=== PATIENT | female | born 2000 | race Caucasian/White ===

== ENCOUNTER 2019-11-25 10:48 | Inpatient (IN) | payer MEDICAID ==
[~2019-11-25] VITALS: Ht 160 cm; Wt 58.5 kg
[2019-11-25] MEDS ORDERED: ALBUTEROL SULF8.5 GM INH (10:52)
[2019-11-25 11:25] VITALS: BP 108/76; Ht 160 cm; Wt 58.5 kg
[2019-11-25 11:29] LABS: HEMOGLOBIN 13.1 g/dL (12-16); MCH 32.6 pg (26.0-34.0); MCHC 33.6 g/dL (31.0-37.0); MEAN PLATELET VOLUME 11.9 fL (7.4-10.4); RBC 4.02 10x6/uL (4.00-5.40); RDW 13.1 % (11.5-14.5); WBC 9.3 10x3/uL (4.8-10.8)
--- NOTE | 2019-11-25 19:08 | NUR ---
RECEIVED SHIFT REPORT FROM ALFRED WALSH RN, INFORMED PT THAT I WILL BE IN SHORTLY TO DO ASSESSMENT, PT VERBALIZES UNDERSTANDING, DENIES NEEDS AT THIS TIME
[2019-11-25 19:40] VITALS: BP 114/70
--- NOTE | 2019-11-25 19:40 | NUR ---
ASSESSMENT PER FLOW SHEET, VS OBTAINED, FF, SLIGHTLY DEVIATED TO THE RIGHT, PT REPORTS NEEDING TO VOID, IV IN LEFT HAND CONVERTED TO SALINE LOCK, PT INST ON WALKING TO BR, PT VERBALIZES UNDERSTANDING, PT UP TO SIDE OF BED, DENIES ANY LIGHTHEADEDNESS OR DIZZYNESS, PT AMB TO BR, GAIT STEADY, VOIDED 1000 MLS OF LIGHTLY BLOOD TINGED URINE, ASSISTED PT WITH MARIA ALEJANDRA CARE, MARIA ALEJANDRA PAD, PANTIES AND CLEAN GOWN, PT BACK TO BED, FF, ML NOW, LIGHT BLEEDING NOTED WITH NO CLOTS, PT REPORTS FLATUS, DENIES PAIN, INFORMED PT THAT I WILL BE MOVING HER TO [facility], PT VERBALIZES UNDERSTANDING, DENIES NEEDS AT THIS TIME, BED IN LOW POSITION, SIDE RAILS X 2, CALL LIGHT IN REACH
--- NOTE | 2019-11-25 20:43 | NUR ---
PT VISITING WITH FAMILY AND FRIENDS, PT'S MOM HOLDING , INFORMED PT THAT I WILL BE MOVING HER TO [facility] SHORTLY, PT VERBALIZES UNDERSTANDING, DENIES NEEDS AT THIS TIME
--- NOTE | 2019-11-25 21:15 | NUR ---
PT TRANSFERRED VIA AMB, GAIT STEADY, WITH INFANT AND FOB AT SIDE, PT'S PARENTS TAKES ALL BELONGINGS AND OTHER CHILD TO ROOM, PT TO BED, PT ORIENTED TO ROOM, BED IN LOW POSITION, SIDE RAILS X 2, CALL LIGHT IN REACH, INFORMED PT THAT I WILL BE BACK SHORTLY WITH BEDDING FOR FOB WHEN FAMILY LEAVES, PT VERBALIZES UNDERSTANDING, DENIES NEEDS AT THIS TIME
--- NOTE | 2019-11-25 21:52 | NUR ---
BEDDING PROVIDED TO FOB, PT REQUESTS SANDWICH TRAY, INFORMED PT THAT I WILL CHECK TO SEE IF I HAVE ONE, PT VERBALIZES UNDERSTANDING, DENIES FURTHER NEEDS
--- NOTE | 2019-11-25 22:07 | NUR ---
PT AND FOB FILLING OUT NSY PAPERWORK, IN OPEN CRIB CART AT BEDSIDE, CUP OF ICE AND SANDWICH TRAY PROVIDED, PT DENIES FURTHER NEEDS
--- NOTE | 2019-11-25 23:15 | NUR ---
PT HOLDING INFANT, MARIA ALEJANDRA PANTIES PROVIDED, PT REQUESTING TYLENOL, INFORMED PT THAT IT WAS DUE AT MIDNIGHT AND THAT I WILL ADM IT THEN, PT VERBALIZES UNDERSTANDING, DENIES FURTHER NEEDS, FOB LAYING IN BED WITH PT
--- NOTE | 2019-11-26 00:06 | NUR ---
ADM TYLENOL PER MD ORDERS, SEE EMAR, PT REQUESTED AND PROVIDED GRANT MORAN, DENIES FURTHER NEEDS, INFANT IN OPEN CRIB CART AT BEDSIDE, FOB IN BED WITH PT
[2019-11-26 02:45] VITALS: BP 114/59
--- NOTE | 2019-11-26 02:45 | NUR ---
INFANT TO ROOM VIA OPEN CRIB CART PER THIS RN, BANDS CHECKED, PT INST THAT ITS TIME TO FEED , PT REQUESTS BREATHING TREAMENT, REPORTS HAVING ASTHMA AND USES AN INHALER AT HOME, PT REPORTS THAT SHE DOES NOT HAVE HER INHALER WITH HER, INFORMED PT THAT I WILL NOTIFY DR MAXWELL, VS OBTAINED, O2SAT 98% ON RA, PT DENIES FURTHER NEEDS OR PAIN
--- NOTE | 2019-11-26 03:00 | NUR ---
DR MAXWELL NOTIFIED, REPORT OF VS, O2 SAT, HAS ASTHMA, USES INHALER, DOES NOT HAVE IT WITH HER, REQUESTS BREATHING TREATMENT, ORDERS RECEIVED FOR ALBUTEROL 2.5MG IN 3CC OF NS NEBULIZED, MAY ALSO HAVE AN MDI AT BEDSIDE, ORDERS READ BACK AND VERIFIED
--- NOTE | 2019-11-26 03:03 | NUR ---
SPOKE TO RT NEGIN REGARDING ORDER, HE REPORTS THAT THE HOSPITAL DOES NOT CARRY MDI AT THIS TIME
--- NOTE | 2019-11-26 03:18 | NUR ---
NEGIN, RT TO ROOM FOR TREATMENT
[2019-11-26 06:09] LABS: RAPID PLASMA REAGIN Non Reactive (Non Reactive)
--- NOTE | 2019-11-26 06:09 | NUR ---
PT RESTING WITH EYES CLOSED, AROUSES TO SOFT VERBAL STIMULATION, ADM TYLENOL PER MD ORDERS, SEE EMAR, PT DENIES FURTHER NEEDS, INFANT IN OPEN CRIB CART AT BEDSIDE, FOB ASLEEP IN BED WITH PT
[2019-11-26 06:36] LABS: BASOPHILS 0.2 % (0-2); HEMATOCRIT 35.4 % (36.0-48.0); HEMOGLOBIN 11.9 g/dL (12-16); IMMATURE GRANULOCYTES 0.3 % (0-5); LYMPHOCYTES 18.5 % (15-50); MCH 32.3 pg (26.0-34.0); MCHC 33.6 g/dL (31.0-37.0); MCV 96.2 fL (80.0-100.0); MEAN PLATELET VOLUME 12.1 fL (7.4-10.4); MONOCYTES 8.8 % (2-11); NEUTROPHILS 70.2 % (40-80); RBC 3.68 10x6/uL (4.00-5.40); WBC 10.5 10x3/uL (4.8-10.8)
[2019-11-26 06:46] LABS: PLATELET COUNT 156 10x3/uL (130-400)
--- NOTE | 2019-11-26 07:23 | NUR ---
RESTING QUIETLY WITH EYES CLOSED, RESP REGULAR AND UNLABORED NO S/S OF DISTRESS NOTED. RESTING QUIETLY IN OPEN CRIB. PT DOES NOT OPEN EYES WHEN DOOR OPENS. REPORT REC'D FROM Melissa BROCK RN. WILL CONTINUE TO MONITOR. BED IN LOW POSITION WITH SRUP X2. CALL LIGHT AND PHONE WITHIN REACH.
--- NOTE | 2019-11-26 08:26 | NUR ---
PT LAYING ON RIGHT SIDE RESTING WITH EYES CLOSED. RESTING QUIETLY IN OPEN CRIB AT BEDSIDE. RESP REGULAR AND UNLABORED, NO S/S OF DISTRESS NOTED. PT DOES NOT OPEN EYES WHEN RN ENTERS ROOM. PT NOT DISTURBED TO ALLOW FOR REST. WILL COMPLETE ASSESSMENT WHEN PT AWAKES. BED IN LOW POSITION WITH SRUP X2. CALL LIGHT AND PHONE WTIHIN REACH. WILL CONTINUE TO MONITOR. SIGNIFICANT OTHER RESTING IN CHAIR AT BEDSIDE.
[2019-11-26 09:53] VITALS: BP 123/63
--- NOTE | 2019-11-26 09:53 | NUR ---
SHIFT ASSESSMENT COMPLETED PER FLOWSHEET. VSS. FUNDUS FIRM, MIDLINE AND U1 WITH SCANT RUBRA LOCHIA, NO CLOTS NOTED. C/O ABD CRAMPING AND BACK ACHE 04/12, TORADOL GIVEN PER ORDER AND PT REQUEST, EDUCATED ON MED. SODA PROVIDED PER REQUEST. POC DISCUSSED, VERBALIZES UNDERSTANDING AND DENIES QUESTIONS. FOB AT BEDSIDE, SUPPORTIVE AND ATTENTIVE TO PT AND NEEDS. BED IN LOW POSITION WITH SRUP X2. CALL LIGHT AND PHONE WITHIN REACH. WILL CONTINUE TO MONITOR.
--- NOTE | 2019-11-26 10:41 | NUR ---
PAIN REASSESSMENT COMPLETED, REPORTS PAIN 4/10. WARM BLANKETS AND COFFEE PROVIDED PER REQUEST. DENIES ADDITIONAL NEEDS. BED IN LOW POSITION WITH SRUP X2. CALL LIGHT AND PHONE WITHIN REACH. WILL CONTINUE TO MONITOR.
--- NOTE | 2019-11-26 12:01 | NUR ---
TYLENOL GIVEN PER ORDER. C/O ABD AND BACK DISCOMFORT RANGING FROM 4-6/10. WILL FOLLOW UP WITH PAIN REASSESSMENT WITH PT. SODA, COFFEE, AND ICE WATER PROVIDED. DENIES ADDITIONAL NEEDS. IN PT ARMS. BED IN LOW POSITION WITH SRUP X2. CALL LIGHT AND PHONE WITHIN REACH. WILL CONTINUE TO MONITOR.
--- NOTE | 2019-11-26 13:02 | NUR ---
ROUNDS MADE. PT RESTING WITH EYES CLOSED, INFANT IN OPEN CRIB RESTING. SIGNIFICANT OTHER AT BEDSIDE CONVERSING ON PHONE. RESP REGULAR AND UNLABORED, NO S/S OF DISTRESS NOTED. S/O DENIES NEEDS. BED IN LOW POSITION WITH SRUP X2. CALL LIGHT AND PHONE WITHIN REACH. WILL CONTINUE TO MONITOR.
--- NOTE | 2019-11-26 14:36 | NUR ---
S/O REPORTS THAT HE WILL BE LEAVING TO GO HOME AND SHOWER. PT DENIES NEEDS AT THIS TIME. CURRENTLY LOOKING AT CELL PHONE. REPORTS BACK AND ABD DISCOMFORT 02/10. WARM BLANKET PLACED ON LOWER BACK AND PT ENCOURAGED TO TAKE WARM SHOWER, DECLINES AT THIS TIME. STATES SHE WANT TO REST. BED IN LOW POSITION WITH SRUP X2. CALL LIGHT AND PHONE WITHIN REACH. WILL CONTINUE TO MONITOR.
--- NOTE | 2019-11-26 15:48 | NUR ---
RESTING WITH EYES CLOSED LAYING ON RIGHT SIDE. RESP REGULAR AND UNLABORED, NO S/S OF DISTRESS NOTED. BED IN LOW POSITION WITH SRUP X2. CALL LIGHT AND PHONE WITHIN PT REACH. PT NOT DISTURBED TO ALLOW FOR REST.
[2019-11-26 16:15] VITALS: BP 137/63
--- NOTE | 2019-11-26 16:15 | NUR ---
C/O ABD AND BACK PAIN /, REPORTS THAT BACK PAIN FEELS LIKE CONSTANT SPASM. VSS. FUNDUS FIRM, MIDLINE AND U2 WITH SCANT RUBRA LOCHIA. UP TO SHOWER, LINEN CHANGE DONE. PT REQUEST TO PUT ON HER OWN CLOTHES FOLLOWING SHOWER. L FA PIV REMOVED PER PT REQUEST. TIP INTACT. BANDAID PLACED. WILL REPORT BACK AND ABD DISCOMFORT TO DR. ALCARAZ. VERBALIZES USE OF CALL LIGHT IN BR. DENIES ADDITIONAL NEEDS. ICE WATER PROVIDED. BED IN LOW POSITION WITH SRUP X2. SIGNIFICANT OTHER REMAINS AT BEDSIDE, SUPPORTIVE AND ATTENTIVE TO PT AND .
--- NOTE | 2019-11-26 16:38 | NUR ---
REPORT TO DR. ALCARAZ REGARDING PT CONTINUING TO C/O OF BACK AND ABD DISCOMFORT 4-04/12 WITH LITTLE RELIEF FROM INTERVENTIONS DONE. ORDERS REC'D FOR 5 MG PO FLEXERIL NOW AND REPEAT 5 MG PO ONE TIME PRN IN 1 HOUR IF PT HAS NO RELIEF OF BACK/ABD DISCOMFORT. WILL NOTIFY PT.
--- NOTE | 2019-11-26 16:49 | NUR ---
PT UPDATED ON NEW ORDER FOR FLEXERIL AND NEED FOR MED TO COME FROM PHARMACY, VERBALIZES UNDERSTANDING. PHARMACY NOTIFIED OF NEW ORDER AND WILL BRING TO MED TO UNIT.
--- NOTE | 2019-11-26 17:29 | NUR ---
FLEXERIL GIVEN PER ORDER. EDUCATED ON MED, BACK TO NBN PER PT REQUEST. SODA PROVIDED. DENIES ADDITIONAL NEEDS. BED IN LOW POSITION WITH SRUP X2. CALL LIGHT AND PHONE WITHIN REACH. WILL CONTINUE TO MONITOR.
--- NOTE | 2019-11-26 18:28 | NUR ---
RESTING QUIETLY LAYING ON RIGHT SIDE, RESP REGULAR AND UNLABORED, NO S/S OF DISTRESS NOTED. DOES NOT OPEN EYES WHEN RN ENTERS ROOM. PT NOT DISTURBED TO ALLOW FOR REST. BED IN LOW POSITION WITH SRUP X2. CALL LIGHT AND PHONE WITHIN REACH. WILL CONTINUE TO MONITOR.
--- NOTE | 2019-11-26 19:27 | NUR ---
UPON ENTERING ROOM, PT REPORTS JUST WAKING UP DUE TO PHONE CALL, RECEIVED SHIFT REPORT FROM CRISTAL BENDER RN, INFORMED PT THAT I WILL BE BACK SHORTLY TO DO ASSESSMENT, PT VERBALIZES UNDERSTANDING, CRISTAL BENDER RN WILL ADM TYLENOL PER MD ORDERS, SEE EMAR
--- NOTE | 2019-11-26 19:50 | NUR ---
CALLS VIA CALL LIGHT, REQUESTS TYLENOL, REPORTS THAT SHE HAD PHONE CALL THAT WOKE HER UP. C/O PAIN 01/10, ABD CRAMPING AND BACK ACHE. TYLENOL AND SODA PROVIDED PER PT REQUEST. BED IN LOW POSITION WITH SRUP X2. CALL LIGHT AND PHONE WITHIN REACH. WILL CONTINUE TO MONITOR.
--- NOTE | 2019-11-26 20:25 | NUR ---
PT BOTTLE FEEDING INFANT AT THIS TIME, WILL COME BACK WHEN FINISHED TO DO ASSESSMENT, PT DENIES NEEDS OR PAIN AT THIS TIME, BED IN LOW POSITION, SIDE RAILS X 2, CALL LIGHT IN REACH
--- NOTE | 2019-11-26 21:15 | NUR ---
ASSESSMENT PER FLOW SHEET, VS OBTAINED, FF, ML, U/1, PT REPORTS FLATUS, NO BM, VOIDING WITH NO DIFFICULTY, AND LITE BLEEDING WITH NO CLOTS, PT RATES BACK PAIN 3/10, DENIES NEED FOR MEDICINE AT THIS TIME, BED IN LOW POSITION, SIDE RAILS X 2, CALL LIGHT IN REACH
--- NOTE | 2019-11-26 22:41 | NUR ---
PT CHANGING INFANTS DIAPER, DENIES NEEDS
--- NOTE | 2019-11-27 00:20 | NUR ---
PT AWAKE, LOOKING AT CELL PHONE, ADM TORADOL PER MD ORDERS, SEE EMAR, PT DENIES NEEDS, INFANT IN OPEN CRIB CART AND FOB AT BEDSIDE
--- NOTE | 2019-11-27 01:59 | NUR ---
PT AWAKE, ADM TYLENOL PER MD ORDERS, SEE EMAR, PT REQUESTED AND SERVED DR CHÁVEZ, DENIES FURTHER NEEDS, INFANT IN OPEN CRIB CART AT BEDSIDE, FOB IN BED WITH PT
--- NOTE | 2019-11-27 04:30 | NUR ---
PT RESTING WITH EYES CLOSED, AROUSES TO SOFT VERBAL STIMULATION, PT INST TO FEED INFANT AT THIS TIME, BOTTLE PROVIDED, PT DENIES NEEDS OR PAIN, FOB ASLEEP IN BED WITH PT
--- NOTE | 2019-11-27 06:16 | NUR ---
PT RESTING WITH EYES CLOSED, RESP QUIET, NO DISTRESS NOTED, LEFT UNDISTURBED AT THIS TIME, IN OPEN CRIB CART AT BEDSIDE, FOB ASLEEP IN BED WITH PT
--- NOTE | 2019-11-27 07:08 | NUR ---
SHIFT REPORT TO DIRK MCCARTY RN
[2019-11-27 07:30] VITALS: BP 108/62
--- NOTE | 2019-11-27 07:30 | NUR ---
AM ASSESSMENT COMPLETE, SEE FLOWSHEET. PT DENIES HEAVY BLEEDING OR PASSING CLOTS. PT IS RESTING IN THE BED, IN CRIB, ASLEEP, NO DISTRESS NOTED. APPLE JUICE SERVED AT PT'S REQUEST. DENIES ALL OTHER NEEDS AT THIS TIME. SRUP X2, CALL LIGHT AND PHONE WITHIN REACH.
--- NOTE | 2019-11-27 11:20 | NUR ---
PT ASKING IF SHE CAN HAVE A PRESCRIPTION FOR FLEXERIL STATES "IT WORKED SO WELL LAST NIGHT". ASKED PT IF SHE DISCUSSED THIS DR. ALCARAZ WHEN MD MADE AM ROUNDS, PT STATES "I FORGOT". PHONE CALL MADE TO DR. ALCARAZ TO INFORM MD OF PT'S REQUEST. DR. ALCARAZ STATES SHE CAN HAVE A FEW, BUT ONCE YOU GET THAT SPASM TO GO AWAY, IT'S USUALLY BETTER, YOU CAN CALL IN FLEXERIL 10 MG ONE PO AT NIGHT TIME PRN BACK/MUSCLE SPASM, # 5, NO REFILLS. PT INFORMED.
--- NOTE | 2019-11-27 11:47 | NUR ---
PT RECEIVED TDAP 09/09/19 DOCUMENTED IN [facility] RECORD.
--- NOTE | 2019-11-27 12:00 | NUR ---
DIETARY SERVES LUNCH TRAY, PT DENIES ALL NEEDS AT THIS TIME. SRUP X2, CALL LIGHT AND PHONE WITHIN REACH.
[2019-11-27] MEDS ORDERED: CYCLOBENZAPRINE10 MG PO (13:38)
--- NOTE | 2019-11-27 16:30 | NUR ---
DISCHARGE INSTRUCTIONS EXPLAINED TO PT AND SIG OTHER, COPIES PROVIDED OF DISCHARGE INSTRUCTIONS, HOME MED LIST, EMERGENCY POST INFORMATION SHEET, AND POST INSTRUCTION SHEET. PT DENIES ALL QUESTIONS AT THIS TIME. DRESSING INFANT FOR DISCHARGE AND AWAITING CAR SEAT CHECK BY NSY NURSE. PT STATES "I WOULD RATHER WALK OUT THAN HAVE TO BE TAKEN OUT IN A WHEELCHAIR". PT WILL CALL WHEN COMPLETELY READY FOR DISCHARGE.
--- NOTE | 2019-11-27 17:00 | NUR ---
FLEXERIL 10 MG ONE PO QHSPRN #5 ONLY, NO REFILLS PER DR. ALCARAZ. PT NOTIFIED.
--- NOTE | 2019-11-27 17:05 | NUR ---
PT AMBULATORY OFF UNIT IN STABLE CONDITION WITH SIG OTHER CARRYING IN CARSEAT. NSY NOTIFIED.
== END 2019-11-27 17:05 | disposition home or self-care (01) | DRG 807 ==
LOC: D.WS 10:48 → D.LD 10:48 → D.WS 21:15
PROVIDERS: ADMIT Obstetrics & Gynecology; ATTEND Obstetrics & Gynecology
PROC: 10E0XZZ Delivery of Products of Conception, External Approach (ICD-10-PCS; principal; 2019-11-25)
PROC: 0HQ9XZZ Repair Perineum Skin, External Approach (ICD-10-PCS; 2019-11-25)
DX: O99.824 Streptococcus B carrier state complicating childbirth (principal); Z37.0 Single live birth; Z3A.39 39 weeks gestation of pregnancy; O70.0 First degree perineal laceration during delivery

== ENCOUNTER 2020-07-30 15:35 | Outpatient (CLI) | payer MEDICAID ==
[2019-11-25 11:25] VITALS: BMI 22.9
[~2020-07-30 15:35] MED LIST: ALBUTEROL SULF8.5 GM INH; CYCLOBENZAPRINE10 MG PO
== END 2020-07-30 16:50 | disposition home or self-care (01) ==
LOC: D.LDO 15:35
PROVIDERS: ATTEND Obstetrics & Gynecology
DX: O26.899 Other specified pregnancy related conditions, unspecified trimester (principal); R51 Headache